=== PATIENT | male | born 1955 | race Caucasian/White ===

== ENCOUNTER → 2017-11-30 | Outpatient (CLI) | payer OTHER ==
[~2017-11-30] MED LIST: PROHANCE 279.3MG/ML 15ML VIAL (A9576) As Ordered
== END ==
LOC: M RAD 12:56
DX: C43.9 Malignant melanoma of skin, unspecified (principal); R90.82 White matter disease, unspecified
CPT/HCPCS: A9576

== ENCOUNTER → 2020-02-25 | Outpatient (CLI) | payer OTHER ==
[~2020-02-25] MED LIST changes: +FERR5ELX PO; +KETO2CR TOP; +LOSA50TA88 PO; +PRED5PAK2 PO; -PROHANCE 279.3MG/ML 15ML VIAL (A9576) As Ordered; +TYLE650T35 PO; +ZELB1TAB PO; +[UNRECOGNIZED DRUG - CODE] PO
--- NOTE | 2020-02-26 13:13 | RADONC ---
RADIATION ONCOLOGY CONSULTATION NOTE DATE: 02/25/2020 CHART NUMBER: [id number] DIAGNOSIS: Malignant melanoma. STAGE: IV, widely metastatic. ECOG PERFORMANCE STATUS: 1 CONSULTATION NOTE: Mr. 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 Apparently, he was found to have enlarged left neck lymph nodes sometime in fall. On 10/06/2017, the patient underwent a left neck mass biopsy which showed necrotic debris and acute inflammatory cells. On 12/07/2017, the patient underwent left modified neck dissection and pathology revealed malignant melanoma which was metastatic to 10 out of 12 matted lymph nodes. There was extracapsular extension present. The patient was to have BRAF mutation positive, stage IV, M1c melanoma with a left shoulder primary. He was treated according to clinical trial [id number] of pembrolizumab, plus propranolol which was initiated on 01/10/2018. That was discontinued secondary to disease progression. The patient subsequently was on clinical trial [id number] of ipilimumab, plus [id number] intratumoral injections and completed his study treatments on 06/12/2019. The patient subsequently was found to have progression of disease on scans done 08/14/2019 and started on encorafenib/binimetinib with tumor reaction and a good response. He was subsequently admitted to the hospital and started on dabrafenib/trametinib, again with a good response. This was discontinued after lack of tolerance on 08/29/2019. He was then started on encorafenib/binimetinib on 09/30/2019. The patient has developed some increasing left neck growth and a scan done on 01/21/2020 showed the previously stable left neck mass has been growing. It is now approximately 3 cm. The patient is now being referred to me for palliative external beam radiation therapy to that neck mass for a dose to be given in five fractions of 400 cGy each as per recommendation from [facility] [place]. PAST MEDICAL HISTORY: The patient's past medical history is not positive for hypertension. ALLERGIES: The patient has NO KNOWN DRUG ALLERGIES. SOCIAL HISTORY: The patient had been using chewing tobacco for 40 years. He is not presently drinking alcohol. FAMILY HISTORY: The patient's family history is negative from melanoma or other malignancies. REVIEW OF SYSTEMS: The patient's review of systems is positive for physical limitations as well as some dizziness, weakness in his arms and legs, decreased energy and generalized aches and pains since his chemotherapy. He denies nausea, vomiting, fevers, chills, night sweats, diplopia, headaches, anxiety or depression, visual disturbances, urinary or bowel difficulties, or neurological problems. PHYSICAL EXAMINATION: Physical exam was deferred secondary to COVID-19 precautions. ASSESSMENT: I believe the patient is a candidate for this palliative treatment and I have so informed him. I have discussed with the patient in detail the potential benefits as well as possible acute and chronic sequelae of external beam radiation therapy. We discussed logistics of treatment planning, simulation and subsequent fractionated daily radiation treatments. I have personally reviewed the patient's last CT scan and I believe we can treat this with large hypofractionated doses while maintaining a distance from the patient's throat and therefore difficult side effects. I am scheduling the patient for the next available simulation slot and radiation treatments will begin subsequently. Thank you for allowing us to participate in the care of this very pleasant gentleman. If I could be of any further assistance, please free to contact me anytime. As always, warm regards. cc: MD Ron Hensley MD Roger Brian. MD Sridhar
== END ==
LOC: M ONCR 09:57
PROVIDERS: ATTEND Radiology Radiation Oncology
DX: C43.9 Malignant melanoma of skin, unspecified (principal); R90.82 White matter disease, unspecified

== ENCOUNTER 2020-03-18 14:15 | Outpatient (RCR) | payer OTHER ==
--- NOTE | 2020-03-04 11:20 | RADONC ---
RADIATION ONCOLOGY SIMULATION NOTE DATE: 03/04/2020 CHART #: [id number] Mr. Rosenberg was taken to the CT scan for CT simulation of his neck field. CT was accomplished without difficulty or discomfort. Radiation treatment planning is underway and radiation treatments will begin subsequently. An immobilization device was created including a mask which will be used throughout the course of treatment. It was created without difficulty or discomfort. I was physically present throughout the course of CT simulation.
--- NOTE | 2020-03-17 08:07 | RADONC ---
RADIATION ONCOLOGY PROGRESS NOTE DATE: 03/16/2020 CHART NUMBER: [id number] PROGRESS NOTE: Mr. Rosenberg is presently at a dose of 1200 cGy to his left neck and is tolerating treatments quite well at this point with no complaints related to his radiation therapy. REVIEW OF SYSTEMS: The patient's review of systems is positive for a sunburn after being in the sun on his cheeks, but is otherwise noncontributory. Denies nausea, vomiting, fevers, chills, night sweats, diplopia, headaches, anxiety or depression, anorexia, weight loss, visual disturbances, chest pain, urinary or bowel difficulties, bone pain, or neurological problems. PHYSICAL EXAMINATION: The patient's skin in the radiated area is within normal limits. No evidence of moist or dry desquamation. The remainder of his physical exam remains unchanged. Mr. Rosenberg is tolerating treatments quite well and radiation will continue as scheduled.
--- NOTE | 2020-03-19 09:46 | RADONC ---
RADIATION ONCOLOGY TREATMENT SUMMARY DATE: 03/18/2020 CHART NUMBER: [id number] DIAGNOSIS: Malignant melanoma. STAGE: IV, widely metastatic. ECOG PERFORMANCE STATUS: 1 TREATMENT SUMMARY: Mr. Rosenberg is a pleasant 64-year-old white male with the diagnosis of metastatic malignant melanoma, who presented to us for consideration of palliative radiation therapy to a left cervical lymph node. We treated the patient to his left cervical lymph node for a dose of 2000 cGy delivered in five fractions of 400 cGy each over six elapsed days from 03/12/2020 through 03/16/2020. The patient's lymph node was treated on a linear accelerator utilizing a 6 MV photon beam via 3-D conformal technique. Mr. Rosenberg tolerated his treatments quite well with no difficulties related to his radiation therapy. The patient is scheduled to see me again in 1 month for further followup. He will also continue to be followed by his other physicians as well. Thank you for allowing us to participate in the care of this very pleasant gentleman. If I could be of any further assistance or provide you with any information, please feel free to contact me anytime. cc: MD Ron Hensley MD Roger Brian. MD Sridhar
== END 2020-03-26 ==
LOC: M ONCR 14:15
PROVIDERS: ATTEND Radiology Radiation Oncology
DX: C77.0 Secondary and unspecified malignant neoplasm of lymph nodes of head, face and neck (principal)

== ENCOUNTER 2023-02-02 21:35 | Emergency (ER) | payer MEDICARE, OTHER ==
[~2023-02-02] VITALS: Ht 172.7 cm; Wt 65.3 kg
[~2023-02-02 21:35] MED LIST changes: +ACET650T61 PO; +LOSA50TA28 PO; -LOSA50TA88 PO; -TYLE650T35 PO
[2023-02-02] MEDS ORDERED: [UNRECOGNIZED DRUG - OTHER] PO (21:53)
[2023-02-02 23:38] LABS: BASO % 0.3 % (0.0-1.0); EOS # 0.2 10^3/uL (0.0-0.5); EOS % 2.5 % (0.0-3.0); HEMOGLOBIN 10.4 g/dl (13.5-17.5); LYMPH # 1.2 10^3/uL (1.5-5.0); LYMPH % 16.1 % (24.0-44.0); MEAN CORPUSCULAR HEMOGLOBIN 25.7 pg (27.0-33.0); MEAN CORPUSCULAR HGB CONC 30.6 g/dl (32.0-36.5); MONO # 0.7 10^3/uL (0.0-0.8); MONO % 10.3 % (2.0-8.0); NEUTROPHILS % 70.4 % (36.0-66.0); PLATELET COUNT, AUTOMATED 346 10^3/uL (150-450); RED BLOOD COUNT 4.05 10^6/uL (4.30-6.10); WHITE BLOOD COUNT 7.2 10^3/uL (4.0-10.0)
[2023-02-02 23:43] LABS: LIPASE 31 U/L (12-53)
[2023-02-02 23:49] LABS: ALKALINE PHOSPHATASE 80 U/L (46-116); ALT/SGPT 10 U/L (7.0-40); AST/SGOT 18 U/L (<34); BILIRUBIN,DIRECT 0.1 MG/DL (<0.4); BILIRUBIN,TOTAL 0.4 MG/DL (0.3-1.2); BLOOD UREA NITROGEN 8 MG/DL (9-23); CALCIUM LEVEL 8.3 MG/DL (8.3-10.6); CARBON DIOXIDE LEVEL 22 MMOL/L (20-31); CHLORIDE LEVEL 104 MMOL/L (98-107); CREATININE FOR GFR 0.97 MG/DL (0.70-1.30); GLOMERULAR FILTRATION RATE > 60.0 (>49); GLUCOSE, FASTING 75 MG/DL (74-106); POTASSIUM SERUM 4.8 MMOL/L (3.5-5.1); SODIUM LEVEL 137 MMOL/L (136-145); TOTAL PROTEIN 6.4 G/DL (5.7-8.2)
[2023-02-03] MEDS ORDERED: methylPREDNISolone 125MG 2ML VIAL IV ONE (00:10)
[2023-02-03] MEDS ORDERED: diphenhydrAMINE 50MG/ML VIAL IV ONE (00:10)
[2023-02-03] MEDS: READI-CAT 2 PO SCH ×2 (00:44→01:07)
[2023-02-03 04:30] VITALS: BP 137/90
== END 2023-02-03 04:59 | disposition home or self-care (01) ==
LOC: M ED 21:35
DX: K63.9 Disease of intestine, unspecified (principal); Z85.820 Personal history of malignant melanoma of skin; Z79.899 Other long term (current) drug therapy; Z91.041 Radiographic dye allergy status
CPT/HCPCS: 74177; 80048; 80076; 83605; 83690; 85025; 93005; 93041; 94760; 96374; 96375; 99285; J1200; J2930

== ENCOUNTER 2023-09-22 10:51 | Emergency (ER) | payer MEDICARE, OTHER ==
[~2023-09-22] VITALS: Ht 175.3 cm; Wt 62.9 kg
[~2023-09-22 10:51] MED LIST changes: +FERR220E10 PO; -FERR5ELX PO; +[UNRECOGNIZED DRUG - OTHER] PO
[2023-09-22 10:52] VITALS: TEMP 97.4
[2023-09-22] MEDS ORDERED: methylPREDNISolone 125MG 2ML VIAL IV ONE (11:20)
[2023-09-22] MEDS ORDERED: diphenhydrAMINE 50MG/ML VIAL IV ONE (11:20)
[2023-09-22 11:50] LABS: BASO % 0.3 % (0.0-1.0); EOS # 0.1 10^3/uL (0.0-0.5); EOS % 0.6 % (0.0-3.0); HEMATOCRIT 26.5 % (42.0-52.0); HEMOGLOBIN 8.1 g/dl (13.5-17.5); LYMPH # 1.1 10^3/uL (1.5-5.0); LYMPH % 12.4 % (24.0-44.0); MEAN CORPUSCULAR HEMOGLOBIN 25.5 pg (27.0-33.0); MEAN CORPUSCULAR HGB CONC 30.6 g/dl (32.0-36.5); MEAN CORPUSCULAR VOLUME 83.3 fl (80.0-96.0); MONO # 0.9 10^3/uL (0.0-0.8); MONO % 10.3 % (2.0-8.0); NEUTROPHILS # 6.5 10^3/uL (1.5-8.5); NEUTROPHILS % 75.5 % (36.0-66.0); PLATELET COUNT, AUTOMATED 438 10^3/uL (150-450); RED BLOOD COUNT 3.18 10^6/uL (4.30-6.10); WHITE BLOOD COUNT 8.6 10^3/uL (4.0-10.0)
[2023-09-22 11:59] LABS: INR 0.99; PROTHROMBIN TIME 12.8 SECONDS (12.5-14.5)
[2023-09-22 12:00] LABS: PARTIAL THROMBOPLASTIN TIME 22.3 SECONDS (24.8-34.2)
[2023-09-22] MEDS ORDERED: ISOVUE-370 76% 100ML VIAL As Ordered ONE (12:03)
[2023-09-22 12:05] LABS: CK-MB VALUE MASS < 1.0 NG/ML (<3.6)
[2023-09-22 12:06] LABS: LIPASE 36 U/L (12-53)
[2023-09-22 12:08] LABS: ALBUMIN 3.2 G/DL (3.2-5.2); ALKALINE PHOSPHATASE 48 U/L (46-116); ALT/SGPT 18 U/L (7.0-40); AST/SGOT 12 U/L (<34); BILIRUBIN,DIRECT 0.1 MG/DL (<0.4); BILIRUBIN,TOTAL 0.5 MG/DL (0.3-1.2); BLOOD UREA NITROGEN 12 MG/DL (9-23); CALCIUM LEVEL 8.4 MG/DL (8.3-10.6); CARBON DIOXIDE LEVEL 24 MMOL/L (20-31); CHLORIDE LEVEL 108 MMOL/L (98-107); CPK CREATINE PHOSPHOKINASE 31 U/L (46-171); CREATININE FOR GFR 0.99 MG/DL (0.70-1.30); GLOMERULAR FILTRATION RATE > 60.0 (>49); GLUCOSE, FASTING 84 MG/DL (74-106); MB/CK RELATIVE INDEX 3.22 (< OR =4); POTASSIUM SERUM 4.3 MMOL/L (3.5-5.1); SODIUM LEVEL 140 MMOL/L (136-145); TOTAL PROTEIN 5.9 G/DL (5.7-8.2)
[2023-09-22 12:09] LABS: FREE T4 1.26 NG/DL (0.89-1.76); THYROID STIMULATING HORMONE 1.658 uIU/ML (0.55-4.78)
[2023-09-22 13:07] VITALS: O2SAT 100
[2023-09-22 13:15] LABS: ABG BASE EXCESS -3.3 (-2.0-2.0); ABG O2 SATURATION 96.9 % (95.0-99.0); ABG PARTIAL PRESSURE CO2 34.4 mmHg (35.0-45.0); ABG PARTIAL PRESSURE O2 115.9 mmHg (75.0-100.0); ABG STANDARD HCO3 21.7 MMOL/L. (22.0-26.0); ABG TOTAL CO2 22.1 MMOL/L (23.0-31.0); ABG pH (ARTERIAL) 7.404 UNITS (7.350-7.450)
[2023-09-22] MEDS ORDERED: PRED5PAK PO (14:33)
[2023-09-22 15:06] VITALS: O2SAT 100
[2023-09-22 15:15] VITALS: BP 128/82
== END 2023-09-22 15:27 | disposition home or self-care (01) ==
LOC: M ED 10:51
DX: R06.02 Shortness of breath (principal); E27.3 Drug-induced adrenocortical insufficiency; C43.9 Malignant melanoma of skin, unspecified; I45.10 Unspecified right bundle-branch block; I10 Essential (primary) hypertension; Z91.041 Radiographic dye allergy status; Z79.52 Long term (current) use of systemic steroids; Z79.811 Long term (current) use of aromatase inhibitors; Z79.899 Other long term (current) drug therapy
CPT/HCPCS: 36600; 71045; 71275; 74177; 80047; 80048; 80076; 82550; 82553; 82803; 83605; 83690; 83880; 84145; 84439; 84443; 84484; 85025; 85610; 85730; 87486; 87581; 87633; 87798; 93005; 93041; 94760; 96374; 99285; J1200; J2930; Q9967

== ENCOUNTER 2024-04-29 20:47 | Emergency (ER) | payer MEDICARE, OTHER ==
[~2024-04-29] VITALS: Ht 175.3 cm; Wt 66.8 kg
[~2024-04-29 20:47] MED LIST changes: +PRED5PAK PO
[2024-04-30 01:52] LABS: BASO # 0.1 10^3/uL (0.0-0.2); BASO % 0.5 % (0.0-1.0); EOS # 0.3 10^3/uL (0.0-0.5); EOS % 3.2 % (0.0-3.0); HEMATOCRIT 30.2 % (42.0-52.0); HEMOGLOBIN 9.3 g/dl (13.5-17.5); LYMPH # 0.9 10^3/uL (1.5-5.0); LYMPH % 8.6 % (24.0-44.0); MEAN CORPUSCULAR HGB CONC 30.8 g/dl (32.0-36.5); MONO # 1.3 10^3/uL (0.0-0.8); MONO % 13.2 % (2.0-8.0); NEUTROPHILS # 7.5 10^3/uL (1.5-8.5); NEUTROPHILS % 74.2 % (36.0-66.0); PLATELET COUNT, AUTOMATED 300 10^3/uL (150-450); RED BLOOD COUNT 3.87 10^6/uL (4.30-6.10); WHITE BLOOD COUNT 10.2 10^3/uL (4.0-10.0)
[2024-04-30] MEDS: methylPREDNISolone 125MG 2ML VIAL IV ONE (01:55)
[2024-04-30] MEDS: diphenhydrAMINE 50MG/ML VIAL IV STA (01:55)
[2024-04-30] MEDS: ONDANSETRON 4MG 2ML VIAL IV ONE (01:55)
[2024-04-30] MEDS: FAMOTIDINE 20MG/2ML VIAL IVP ONE (01:55)
[2024-04-30] MEDS: NS 1,000 ML IV ONE (01:55)
[2024-04-30] MEDS: GASTROGRAFIN SOLUTION 30ML PO SCH (02:01)
[2024-04-30 02:04] LABS: LIPASE 27 U/L (12-53)
[2024-04-30 02:06] LABS: ALBUMIN 3.2 G/DL (3.2-5.2); ALKALINE PHOSPHATASE 60 U/L (46-116); ALT/SGPT 17 U/L (7.0-40); AST/SGOT 27 U/L (<34); BILIRUBIN,TOTAL 0.6 MG/DL (0.3-1.2); BLOOD UREA NITROGEN 12 MG/DL (9-23); CALCIUM LEVEL 8.7 MG/DL (8.3-10.6); CARBON DIOXIDE LEVEL 22 MMOL/L (20-31); CHLORIDE LEVEL 102 MMOL/L (98-107); CREATININE FOR GFR 0.93 MG/DL (0.70-1.30); GLOMERULAR FILTRATION RATE > 60.0 (>49); GLUCOSE, FASTING 90 MG/DL (74-106); SODIUM LEVEL 132 MMOL/L (136-145); TOTAL PROTEIN 6.3 G/DL (5.7-8.2)
[2024-04-30] MEDS ORDERED: ISOVUE-370 76% 100ML VIAL As Ordered ONE (02:40)
[2024-04-30] MEDS: PERCOCET 5MG/325MG TAB PO ONE (04:30)
[2024-04-30 04:43] VITALS: BP 127/82; TEMP 97.4; O2SAT 98
== END 2024-04-30 04:40 | disposition home or self-care (01) ==
LOC: M ED 20:47
DX: R10.9 Unspecified abdominal pain (principal); N40.0 Benign prostatic hyperplasia without lower urinary tract symptoms; R93.5 Abnormal findings on diagnostic imaging of other abdominal regions, including retroperitoneum; I10 Essential (primary) hypertension; Z91.041 Radiographic dye allergy status; Z79.52 Long term (current) use of systemic steroids; Z79.1 Long term (current) use of non-steroidal anti-inflammatories (NSAID); Z79.899 Other long term (current) drug therapy
CPT/HCPCS: 74177; 76857; 80053; 83690; 85025; 96361; 96374; 99284; J1200; J2405; J2919; Q9963; Q9967